=== PATIENT | male | born 1945 | race Caucasian/White ===

== ENCOUNTER 2017-11-28 11:53 | Outpatient (CLI) | payer MEDICARE ==
[~2017-11-28] VITALS: Ht 167.6 cm; Wt 76.2 kg
[2017-11-28] MEDS ORDERED: SAXA1TBM2 PO (12:11)
[2017-11-28] MEDS ORDERED: SIMV10TA3 PO (12:11)
[2017-11-28 12:46] VITALS: BP 127/67
[2017-11-28 12:48] LABS: BASOPHILS % (AUTO) 0 % (0-10); EOSINOPHILS # (AUTO) 0.1 10^3/uL (0.0-0.3); EOSINOPHILS % (AUTO) 2 % (0-10); HEMATOCRIT 43 % (40-54); LYMPHOCYTES # (AUTO) 2.5 X 10^3 (1.0-4.0); LYMPHOCYTES % (AUTO) 30 % (12-44); MEAN CORPUSCULAR HEMOGLOBIN 31 PG (25-34); MEAN CORPUSCULAR HGB CONC 35 G/DL (32-36); MEAN CORPUSCULAR VOLUME 88 FL (80-99); MEAN PLATELET VOLUME 11.1 FL (7.4-10.4); MONOCYTES # (AUTO) 0.6 X 10^3 (0.0-1.0); MONOCYTES % (AUTO) 7 % (0-12); NEUTROPHILS # (AUTO) 5.1 X 10^3 (1.8-7.8); NEUTROPHILS % (AUTO) 61 % (42-75); PLATELET COUNT 207 10^3/uL (130-400); RED BLOOD COUNT 4.84 10^6/uL (4.35-5.85); RED CELL DISTRIBUTION WIDTH 12.4 % (10.0-14.5); WHITE BLOOD COUNT 8.2 10^3/uL (4.3-11.0)
[2017-11-28] MEDS ORDERED: GABA-488 PO (12:50)
[2017-11-28] MEDS ORDERED: ASPI-586 PO (12:50)
[2017-11-28 13:09] LABS: BUN/CREATININE RATIO 20; CALCIUM 9.7 MG/DL (8.5-10.1); CARBON DIOXIDE 24 MMOL/L (21-32); CHLORIDE 106 MMOL/L (98-107); CREATININE SERUM 1.14 MG/DL (0.60-1.30); GFR ESTIMATED > 60; GLUCOSE 182 MG/DL (70-105); POTASSIUM 4.6 MMOL/L (3.6-5.0); SODIUM 141 MMOL/L (135-145)
== END 2017-11-28 12:40 | disposition home or self-care (01) ==
LOC: PREOP 11:53
PROVIDERS: ATTEND Otolaryngology Otolaryngology/Facial Plastic Surgery
DX: Z01.812 Encounter for preprocedural laboratory examination (principal); Z11.2 Encounter for screening for other bacterial diseases; L98.9 Disorder of the skin and subcutaneous tissue, unspecified
CPT/HCPCS: 36415; 80048; 85025; 87081; 93005

== ENCOUNTER 2017-11-30 06:05 | Day surgery (SDC) | payer MEDICARE ==
[~2017-11-30] VITALS: Ht 167.6 cm; Wt 76.2 kg
[~2017-11-30 06:05] MED LIST: ASPI-586 PO; GABA-488 PO; SAXA1TBM2 PO; SIMV10TA3 PO
[2017-11-30 06:20] VITALS: BP 134/69
[2017-11-30] MEDS: LACTATED RINGERS 1,000 ML IV PRN ×2 (06:20→09:00)
[2017-11-30] MEDS ORDERED: LIDOCAINE PF 2% 2 ML (XYLOCAINE) VIAL ONE ×2 (06:51→06:52)
[2017-11-30] MEDS ORDERED: proPOfol 200 MG/20 ML (DIPRIVAN) VIAL IV ONE (06:51)
[2017-11-30] MEDS ORDERED: ONDANSETRON 4 MG/2 ML (SDV) Z0FRAN ONE (06:51)
[2017-11-30] MEDS ORDERED: MIDAZOLAM 2 MG/2 ML (VERSED) VIAL ONE (06:51)
[2017-11-30] MEDS ORDERED: fentaNYL INJECTION 100 MCG/2 ML AMP ONE (06:52)
[2017-11-30] MEDS ORDERED: SEVOFLURANE (ULTANE) 15 ML INHAL SOLN ONE ×6 (06:53→09:18)
--- NOTE | 2017-11-30 07:06 | Progress Note-Pre Operative ---
Pre-Operative Progress Note H&P Reviewed The H&P was reviewed, patient examined and no changes noted. Date Seen by Provider: Nov 30, 2017 Time Seen by Provider: 07:00 Date H&P Reviewed: Nov 30, 2017 Time H&P Reviewed: 07:00 Pre-Operative Diagnosis: Nasal Lesion, Left Cheek Lesion JOSE M ENGEL MD Nov 30, 2017 7:06 am
[2017-11-30] MEDS ORDERED: MUPIROCIN 2% OINT 22 GM (BACTROBAN) TUBE ONE (07:13)
[2017-11-30] MEDS ORDERED: LIDOCAINE/EPI 1%-1:200,000 (XYLOCAINE) 10 ML VIAL ONE (07:13)
[2017-11-30] MEDS ORDERED: BSS 15 ML ONE (09:05)
--- NOTE | 2017-11-30 09:29 | Progress Note-Post Operative ---
Post-Operative Progess Note Surgeon (s)/Edi Architect (s) Surgeon JOSE M ENGEL MD Edi Architect n/a Pre-Operative Diagnosis Nasal Lesion, Left Cheek Lesion Post-Operative Diagnosis same Post-Op Procedure Note Date of Procedure: Nov 30, 2017 Name of Procedure Performed: Excision of LEft Cheeck lesion with intermediate repair, Excison of Nsaal Lesion with FTSG Reconstruction with Donor site Left Neck Description & Findings Description and Findings: n/a Anesthesia Type lma Estimated Blood Loss minimal Packing none. Specimen(s) collected/removed cheek leison for frozen nasal lesion for frozen JOSE M ENGEL MD Nov 30, 2017 9:29 am
[2017-11-30] MEDS ORDERED: ACETAMINOPHEN 325 MG TABLET PO PRN (09:30)
[2017-11-30] MEDS ORDERED: CEPH-507 PO (09:44)
[2017-11-30] MEDS ORDERED: HYDROmorphone 2 MG/ML VIAL (DILAUDID) IV ONE (09:45)
[2017-11-30] MEDS ORDERED: ONDANSETRON 4 MG/2 ML (SDV) Z0FRAN IVP PRN (09:45)
[2017-11-30] MEDS ORDERED: MEPERIDINE (DEMEROL) INJ 50 MG/ML IVP ONE (09:45)
[2017-11-30] MEDS ORDERED: morphine INJ 10 MG/ML 1ML (SYR OR VIAL) IVP ONE (09:45)
[2017-11-30 10:15] VITALS: BP 166/81
[2017-11-30 10:45] VITALS: BP_SYST 166; BP_SYST 167; BP_DIAS 80; BP_DIAS 81
--- NOTE | 2017-11-30 12:38 | Anesthesia-General Post-Op ---
General Patient Condition Mental Status/LOC: Same as Preop Cardiovascular: Satisfactory Nausea/Vomiting: Absent Respiratory: Satisfactory Pain: Controlled Complications: Absent Post Op Complications Complications None Follow Up Care/Instructions Patient Instructions None needed. Anesthesia/Patient Condition Patient Condition Patient is doing well, no complaints, stable vital signs, no apparent adverse anesthesia problems. No complications reported per nursing. IRINA RESTREPO CRNA Nov 30, 2017 12:38
== END 2017-11-30 10:45 | disposition home or self-care (01) ==
LOC: SDC 06:05
PROVIDERS: ATTEND Otolaryngology Otolaryngology/Facial Plastic Surgery
DX: C44.321 Squamous cell carcinoma of skin of nose (principal); L90.5 Scar conditions and fibrosis of skin; E11.40 Type 2 diabetes mellitus with diabetic neuropathy, unspecified; E78.5 Hyperlipidemia, unspecified; F17.290 Nicotine dependence, other tobacco product, uncomplicated; Z79.82 Long term (current) use of aspirin; Z79.899 Other long term (current) drug therapy
CPT/HCPCS: 82962; 88304; 88305; 88331

== ENCOUNTER → 2020-07-02 | Outpatient (CLI) | payer MEDICARE ==
[~2020-07-02] MED LIST changes: +CEPH-507 PO; +SIMV10TA26 PO; -SIMV10TA3 PO
--- NOTE | 2020-07-02 15:32 | Diagnostic Imaging Report ---
INDICATION: Heel pain. COMPARISON: None. FINDINGS: Three views of the right foot demonstrate no acute fracture or dislocation. There are no focal osseous lesions. There is no soft tissue swelling. Joint spaces are well maintained. No radiopaque foreign bodies are seen. IMPRESSION: No acute fractures or dislocations of the right foot. Dictated by: Dictated on workstation # [id number]
== END ==
LOC: RAD FS 13:29
PROVIDERS: ATTEND Nurse Practitioner Family
DX: M79.671 Pain in right foot (principal)
CPT/HCPCS: 73630